=== PATIENT | male | born 1955 | race African-American/Black ===

== ENCOUNTER 2019-01-12 11:16 | Inpatient (IN) ==
[2019-01-12 13:33] LABS: BASO# 0.06 X1000 (0.0-0.2); BASO% 0.8 % (0.0-0.8); EOS# 0.28 X1000 (0.0-0.7); EOS% 3.5 % (0.0-10.0); HEMATOCRIT 40.1 % (42.0-52.0); HEMOGLOBIN 12.9 g/dL (14.0-18.0); IMM GRAN# 0.02 X1000 (0.0-0.04); IMM GRAN% 0.3 % (0.0-0.5); LYMPH# 2.81 X1000 (1.2-3.4); LYMPH% 35.3 % (20.5-51.1); MCH 28.5 PG (27-31); MCHC 32.2 g/dL (33-37); MCV 88.7 FL (81-99); MONO# 0.56 X1000 (0.11-0.59); MPV 9.1 FL (7.4-10.4); NEUT# 4.22 X1000 (1.4-6.5); NEUT% 53.1 % (42.2-75.2); PLT 248 X1000 (130-400); RBC 4.52 XMIL (4.7-6.1); RDW 14.3 % (11.5-14.5); WBC 7.95 X1000 (4.8-10.8)
[2019-01-12 14:15] LABS: ALBUMIN 3.4 g/dL (3.5-5.0); CALCIUM 9.1 mg/dL (8.8-10.2); CREATININE 1.6 mg/dL (0.7-1.2); POTASSIUM 4.2 mmol/L (3.5-5.1); TOTAL BILIRUBIN 0.23 mg/dL (0.20-1.00); TOTAL PROTEIN 6.9 g/dL (6.3-8.3)
[2019-01-12 14:40] LABS: CK INDEX 0.9 (0.0-2.5); CK-MB 2.66 ng/mL (0.0-5.0)
[2019-01-12] MEDS ORDERED: PERCOCET-5 PO PRN (18:33)
[2019-01-12] MEDS ORDERED: ZOFRAN IV PRN (18:33)
[2019-01-12] MEDS ORDERED: TYLENOL PO PRN (18:33)
[2019-01-12] MEDS ORDERED: NS 1,000 ML IV SCH (18:33)
[2019-01-12 19:39] LABS: INR 1.04; PROTIME 13.7 Seconds (11.0-16.0); PTT 27.8 Seconds (22.3-41.8)
[2019-01-12] MEDS: LOPRESSOR PO SCH (20:20)
[2019-01-12] MEDS ORDERED: ASPIRIN PO SCH (21:00)
[2019-01-12] MEDS ORDERED: LIPITOR PO SCH (21:00)
[2019-01-12] MEDS ORDERED: OXYCODONE HCL 7.5 MG PO PRN (22:08)
[2019-01-12] MEDS: NEURONTIN PO SCH (22:12)
[2019-01-12] MEDS: OXY IR PO PRN (22:40)
[2019-01-13 06:09] LABS: HEMOGLOBIN 12.8 g/dL (14.0-18.0); MCH 28.2 PG (27-31); MCHC 32.8 g/dL (33-37); MCV 85.9 FL (81-99); MPV 8.7 FL (7.4-10.4); RBC 4.54 XMIL (4.7-6.1); RDW 13.9 % (11.5-14.5); WBC 8.9 X1000 (4.8-10.8)
[2019-01-13 06:31] LABS: ALB/GLOB RATIO 1.1; ALBUMIN 3.6 g/dL (3.5-5.0); CALCIUM 9.2 mg/dL (8.8-10.2); CREATININE 1.5 mg/dL (0.7-1.2); POTASSIUM 3.8 mmol/L (3.5-5.1); TOTAL BILIRUBIN 0.32 mg/dL (0.20-1.00); TOTAL PROTEIN 6.8 g/dL (6.3-8.3)
[2019-01-13 07:54] VITALS: BP 121/79
[2019-01-13] MEDS ORDERED: ASPIRIN PO SCH (09:00)
[2019-01-13] MEDS ORDERED: PRILOSEC PO SCH (09:00)
[2019-01-13] MEDS ORDERED: LIPITOR PO SCH (09:00)
[2019-01-13] MEDS: NEURONTIN PO SCH (10:41)
[2019-01-13] MEDS: OXY IR PO PRN (10:41)
[2019-01-13] MEDS: LOPRESSOR PO SCH (10:41)
== END 2019-01-13 11:31 | disposition home or self-care (01) ==
LOC: ED 11:16 → 1N 16:50
PROVIDERS: ATTEND Internal Medicine